=== PATIENT | female | born 1995 ===

== ENCOUNTER 2021-02-11 11:07 | Emergency (ER) | payer SELFPAY ==
--- NOTE | 2021-02-11 12:46 | Emergency Department Report ---
Blank Doc - Documentation Documentation: 25-year-old female that presents with left upper medial thigh open wound with drainage. Maint Mechanic present during exam. 1- This is a initial triage assessment/medical screening only. Full assessment and work-up will be completed once the patient is in proper hospital gown, ED bed and in a private room setting. This initial assessment/diagnostic orders/clinical plan/ treatment(s) is/are subject to change based on pt's health status, clinical progression and re-assessment by fellow clinical providers in the ED. Further treatment and workup at subsequent clinical providers discretion. Patient/guardians urged not to elope from ED as their condition may be serious if not clinically assessed and managed. 2-watch out and dressing to be applied. 3-tetanus needed.
--- NOTE | 2021-02-11 15:19 | Emergency Department Report ---
ED General Adult HPI - General Chief complaint: Wound/Laceration Stated complaint: BOIL ON THIGH Time Seen by Provider: 02/11/21 12:39 Source: patient Mode of arrival: Ambulatory Limitations: No Limitations - History of Present Illness Initial comments: 25-year-old female patient presents with complaints of left thigh wound and pain for 5 days. Patient states it initially started out as a bump that began to drain a couple of days ago. The pain improved upon drainage of the wound, however now she complains of a ulceration in the area. She also reports there is some swelling surrounding the wound. She denies any fever/chills/sweats or difficulty moving her leg. She rates her current pain as a 1/10 in severity without movement and 5/10 in severity with movement and walking. No history of immunocompromising diseases per patient - Related Data Previous Rx's Medication Instructions Recorded Last Taken Type Clindamycin [Clindamycin CAP] 300 mg PO Q6H 10 Days #40 capsule 02/11/21 Unknown Rx Ibuprofen [Motrin 800 MG tab] 800 mg PO Q8HR PRN #20 tablet 02/11/21 Unknown Rx Allergies Allergy/AdvReac Type Severity Reaction Status Date / Time No Known Allergies Allergy Unverified 02/11/21 12:11 ED Review of Systems ROS: Stated complaint: BOIL ON THIGH Other details as noted in HPI Constitutional: denies: chills, diaphoresis, fever, malaise, weakness Musculoskeletal: denies: arthralgia Skin: denies: rash, lesions Neurological: denies: numbness, paresthesias, abnormal gait ED Past Medical Hx - Past Medical History Previous Medical History?: No - Surgical History Past Surgical History?: No - Medications Home Medications: Home Medications Medication Instructions Recorded Confirmed Last Taken Type Clindamycin [Clindamycin CAP] 300 mg PO Q6H 10 Days #40 capsule 02/11/21 Unknown Rx Ibuprofen [Motrin 800 MG tab] 800 mg PO Q8HR PRN #20 tablet 02/11/21 Unknown Rx ED Physical Exam - General Limitations: No Limitations General appearance: alert, in no apparent distress, obese - Head Head exam: Present: atraumatic, normocephalic - Eye Eye exam: Present: normal appearance - Respiratory Respiratory exam: Absent: respiratory distress - Cardiovascular Cardiovascular Exam: Present: normal rhythm, tachycardia (Mild noted to be 108 on exam) - Neurological Exam Neurological exam: Present: alert, oriented X3, normal gait - Psychiatric Psychiatric exam: Present: normal affect, anxious - Skin Skin exam: Present: warm, dry, erythema. Absent: intact (Approximately 1.5 cm ovoid shallow ulceration noted with surrounding erythema and swelling consistent with abscess with cellulitis. Area is mildly tender to palpation) ED Course Vital Signs 02/11/21 02/11/21 02/11/21 12:12 15:25 19:25 Temperature 99.0 F 98.7 F Pulse Rate 110 H 120 H 97 H Respiratory 20 20 20 Rate Blood Pressure 155/101 Blood Pressure 147/99 [Right] O2 Sat by Pulse 100 100 100 Oximetry ED Medical Decision Making - Lab Data Result diagrams: 02/11/21 15:43 - Medical Decision Making 25-year-old female patient presents with complaints of left thigh wound and pain for 5 days. Patient states it initially started out as a bump that began to drain a couple of days ago. The pain improved upon drainage of the wound, however now she complains of a ulceration in the area. She also reports there is some swelling surrounding the wound. She denies any fever/chills/sweats or difficulty moving her leg. She rates her current pain as a 1/10 in severity without movement and 5/10 in severity with movement and walking. No history of immunocompromising diseases per patient White count normal CBC. She is afebrile. Heart rate noted to be elevated at 120 upon arrival, on repeat 110 bpm. She admits to anxiety. Patient given 1 L of saline. Heart rate improved to 97. Wound is already open and draining. Cellulitic changes noted. Patient given dose of clindamycin here in ED and will discharge home on clindamycin. Patient is otherwise well-appearing and stable for discharge home. Discussed wound care and signs and symptoms that should prompt immediate return to emergency department in detail with patient who verbalized understanding. Critical care attestation.: If time is entered above; I have spent that time in minutes in the direct care of this critically ill patient, excluding procedure time. ED Disposition Clinical Impression: Abscess or cellulitis of thigh Disposition: [id number] TO HOME OR SELFCARE Is pt being admited?: No Condition: Stable Instructions: Cellulitis, Adult, Percutaneous Abscess Drain, Care After Prescriptions: Clindamycin [Clindamycin CAP] 300 mg PO Q6H 10 Days #40 capsule Ibuprofen [Motrin 800 MG tab] 800 mg PO Q8HR PRN #20 tablet PRN Reason: pain Referrals: [facility] [Provider Group] - 3-5 Days
[2021-02-11 15:28] VITALS: BP 147/99
[2021-02-11] MEDS ORDERED: LIDOCAINE (1%) 10 MG/1 ML VIAL 20 ML MDV INFILTRATI ONE (15:32)
[2021-02-11] MEDS ORDERED: SODIUM CHLORIDE 0.9% 1000 ML 1,000 ML IV ONE (15:57)
[2021-02-11 16:00] LABS: Basophils # (Auto) 0.1 K/mm3 (0.0-0.1); Basophils % (Auto) 1.2 % (0.0-1.8); Eosinophils % (Auto) 0.5 % (0.0-4.3); Hematocrit 42.9 % (30.3-42.9); Hemoglobin 14.3 gm/dl (10.1-14.3); Lymphocytes # (Auto) 1.6 K/mm3 (1.2-5.4); Lymphocytes % (Auto) 17.1 % (13.4-35.0); Mean Corpuscular HGB Conc 33 % (30-34); Mean Corpuscular Volume 84 fl (79-97); Monocytes # (Auto) 0.3 K/mm3 (0.0-0.8); Monocytes % (Auto) 3.6 % (0.0-7.3); Platelet Count 351 K/mm3 (140-440); Red Blood Count 5.08 M/mm3 (3.65-5.03); Red Cell Distribution Width 14.4 % (13.2-15.2)
== END 2021-02-11 19:25 | disposition home or self-care (01) ==
LOC: ED 11:07
DX: L02.416 Cutaneous abscess of left lower limb (principal); L03.116 Cellulitis of left lower limb; Z79.899 Other long term (current) drug therapy
CPT/HCPCS: 36415; 85025; 87116; 87186; 96365; 99283; J7030